=== PATIENT | male | born 2000 | race Caucasian/White ===

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

== ENCOUNTER 2024-04-13 10:35 | Emergency (ER) | payer OTHER ==
[~2024-04-13] VITALS: Ht 175.2 cm; Wt 86.2 kg
[2024-04-13] MEDS ORDERED: Acetaminophen/Oxycodone 5 MG/325 MG TABLET PO ONE (11:10)
[2024-04-13] MEDS ORDERED: MELOXICAM15 MG PO (11:14)
== END 2024-04-13 11:18 | disposition home or self-care (01) ==
LOC: ED 10:35
DX: S40.012A Contusion of left shoulder, initial encounter (principal); Z91.030 Bee allergy status; Z88.0 Allergy status to penicillin; Z98.890 Other specified postprocedural states; V47.5XXA Car driver injured in collision with fixed or stationary object in traffic accident, initial encounter; Y93.89 Activity, other specified; Y92.410 Unspecified street and highway as the place of occurrence of the external cause; Y99.8 Other external cause status

== ENCOUNTER 2024-04-19 20:59 | Emergency (ER) | payer OTHER ==
[~2024-04-19] VITALS: Ht 175.2 cm; Wt 86.2 kg
[~2024-04-19 20:59] MED LIST changes: +MELOXICAM15 MG PO
[2024-04-19] MEDS ORDERED: Ketorolac Tromethamine 30 MG/ML VIAL IV ONE (21:15)
[2024-04-19] MEDS ORDERED: ACETAMINOPHEN 325 MG TAB PO ONE (21:15)
[2024-04-19] MEDS ORDERED: Metoclopramide Hydrochloride 10 MG/2 ML VIAL IV ONE (21:15)
[2024-04-19] MEDS ORDERED: SODIUM CHLORIDE 0.9% 1,000 ML IV ONE (21:15)
[2024-04-19] MEDS ORDERED: Dexamethasone Sodium Phospha 20 MG/5 ML VIAL IV ONE (21:15)
[2024-04-19] MEDS ORDERED: diphenhydrAMINE hydrochloride 50 MG/ML VIAL IV ONE (21:15)
[2024-04-19] MEDS ORDERED: REGLAN10 M1 PO (22:20)
== END 2024-04-19 23:25 | disposition home or self-care (01) ==
LOC: ED 20:59
DX: R51.9 Headache, unspecified (principal); Z91.030 Bee allergy status; Z88.0 Allergy status to penicillin; Z98.890 Other specified postprocedural states; Z87.891 Personal history of nicotine dependence